=== PATIENT | male | born 1975 | race Caucasian/White ===

== ENCOUNTER 2018-09-25 02:33 | Emergency (ER) | payer SELFPAY ==
[~2018-09-25] VITALS: Ht 165.1 cm; Wt 75.0 kg
[2018-09-25 04:50] VITALS: BP 121/89
== END 2018-09-25 06:27 | disposition left against medical advice (07) ==
LOC: ER 02:33
DX: Z53.21 Procedure and treatment not carried out due to patient leaving prior to being seen by health care provider (principal)